=== PATIENT | male | born 1985 | race Caucasian/White ===

== ENCOUNTER 2017-08-23 19:50 | Emergency (ER) | payer OTHER ==
[~2017-08-23] VITALS: Ht 167.6 cm; Wt 78.5 kg
[2017-08-23 19:52] VITALS: BP 128/74; PULSE 118; RESP 18; TEMP 99.6; O2SAT 96
[2017-08-23] MEDS ORDERED: ONDANSETRON ODT 4 MG TAB PO ONE (22:00)
[2017-08-23] MEDS ORDERED: OSELTAMIVIR PHOSPHATE 75 MG CAP PO ONE (22:00)
[2017-08-23] MEDS ORDERED: ZOFR4TAB3 SL (22:03)
[2017-08-23] MEDS ORDERED: OSEL75 PO (22:03)
--- NOTE | 2017-08-23 22:03 | PD ---
HPI Chief Complaint: Cold / Flu Symptoms Time Seen by Provider: 21:51 Travel History International Travel<30 days: No Contact w/Intl Traveler<30days: No Traveled to known affect area: No History of Present Illness HPI 32-year-old male here for evaluation of flulike symptoms that started at around 2:00 AM. Patient reports fevers, chills, generalized malaise, general has body aches, cough productive of yellowish sputum. He feels nauseous but has not vomited. No diarrhea. No abdominal pains. [place] is from out of town and is here for the weekend for the race. [facility] Social History Alcohol Use: Yes Tobacco Use: No Allergies-Medications (Allergen,Severity, Reaction): Coded Allergies: No Known Drug Allergies (Verified Allergy, Unknown, 08/23/17) Reported Meds & Prescriptions Reported Meds & Active Scripts Active Zofran Odt (Ondansetron Odt) 4 Mg Tab 4 Mg SL Q8HR PRN Tamiflu (Oseltamivir Phosphate) 75 Mg Cap 75 Mg PO BID 5 Days Review of Systems Except as stated in HPI: all other systems reviewed are Neg Physical Exam Narrative GENERAL: Well-developed, well-nourished, awake, alert, comfortable, no apparent distress. SKIN: Focused skin assessment warm/dry. No rash. HEAD: Atraumatic. Normocephalic. EYES: Pupils equal and round. No scleral icterus. No injection or drainage. ENT: No nasal bleeding or discharge. Mucous membranes pink and moist. NECK: Trachea midline. No JVD. No nuchal rigidity. CARDIOVASCULAR: Regular rate and rhythm. RESPIRATORY: No accessory muscle use. Clear to auscultation. Breath sounds equal bilaterally. GASTROINTESTINAL: Abdomen soft, non-tender, nondistended. MUSCULOSKELETAL: No obvious deformities. No clubbing. No cyanosis. No edema. NEUROLOGICAL: Awake and alert. No obvious cranial nerve deficits. Motor grossly within normal limits. Normal speech. PSYCHIATRIC: Appropriate mood and affect; insight and judgment normal. Data Data Last Documented VS Vital Signs Date Time Temp Pulse Resp B/P (MAP) Pulse Ox O2 Delivery O2 Flow Rate FiO2 08/23/17 21:59 98 20 08/23/17 19:52 99.6 128/74 (92) 96 Room Air Orders Orders Oseltamivir (Tamiflu) (08/23/17 22:00) Ondansetron Odt (Zofran Odt) (08/23/17 22:00) Ed Discharge Order (08/23/17 22:04) [facility] Medical Decision Making Medical Screen Exam Complete: Yes Emergency Medical Condition: Yes Differential Diagnosis Influenza, viral illness, pneumonia, bronchitis, dehydration Narrative Course Vital signs reviewed. Heart rate improved from 114-98 without any intervention. Patient has signs and symptoms of influenza. I offered to perform basic labs and to provide IV fluids, however the patient prefers to just be treated for the flu and will return should his symptoms worsen. He will stay hydrated with plenty of fluids and keep fever under control with Tylenol/ibuprofen. He was advised to follow up with a primary care physician this week. He verbalizes understanding and agreement with plan. Diagnosis Primary Impression: Influenza-like illness Referrals: Primary Care Physician 3 days Additional Instructions: Follow-up with a primary care physician this week. Take Tamiflu as prescribed. Stay hydrated with plenty of fluids. Keep fever under control by alternating between Tylenol and ibuprofen every 3-4 hours. Return to the emergency department for worsening symptoms or any other concerns. Scripts Ondansetron Odt (Zofran Odt) 4 Mg Tab 4 MG SL Q8HR Y for Nausea/Vomiting, #15 TAB 0 Refills Prov: Capo Leal MD 08/23/17 Oseltamivir (Tamiflu) 75 Mg Cap 75 MG PO BID for Mgmt Viral Infection for 5 Days, #10 CAP 0 Refills Prov: Capo Leal MD 08/23/17 Disposition: 01 DISCHARGE HOME Condition: Stable Capo Leal MD Aug 23, 2017 22:03
== END 2017-08-23 22:23 | disposition home or self-care (01) ==
LOC: NEPD 19:50
DX: J11.1 Influenza due to unidentified influenza virus with other respiratory manifestations (principal)
CPT/HCPCS: 99284